=== PATIENT | female | born 1970 | race Caucasian/White ===

== ENCOUNTER 2021-11-12 19:25 | Emergency (ER) | payer BC, SELFPAY ==
[2021-11-12 19:26] VITALS: BP 126/98; PULSE 77; RESP 16; TEMP 36.8; O2SAT 99; BMI 27.3
[2021-11-12 20:39] VITALS: BP 96/76; PULSE 89; O2SAT 97
--- NOTE | 2021-11-12 20:40 | XR_ITS ---
PROCEDURE INFORMATION: Exam: XR Right Knee Exam date and time: 11/12/2021 9:24 PM Age: 50 years old Clinical indication: Pain; Knee; Right; Additional info: Pain, nwb, no known injury TECHNIQUE: Imaging protocol: Radiologic exam of the Right knee. Views: 3 views. COMPARISON: No relevant prior studies available. FINDINGS: Bones/joints: No acute fracture or dislocation. The knee compartments are preserved. Normal bone mineralization. Soft tissues: No effusion or soft tissue swelling. IMPRESSION: No acute findings.
--- NOTE | 2021-11-12 21:12 | PC.NURSE ---
Updated pt that she was waiting on a knee XRAY. Pt was agreeable. No other needs at this time.
--- NOTE | 2021-11-12 21:32 | PC.NURSE ---
Pt gone to RAD for Xray
--- NOTE | 2021-11-12 22:20 | HMH.EDGENADL ---
ED Disposition Clinical Impression: Right knee pain Disposition: Home, Self-Care Condition on Discharge: Good Instructions: DI for Knee Pain Additional Instructions: You were evaluated in the emergency department today for right knee pain. 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 You may also take Tylenol. You may bear weight as tolerated. Follow-up outpatient with orthopedics. We are providing you with a referral. Follow-up with your primary care provider over the next 48 hours. Return to the emergency department for any new or worsening symptoms. Prescriptions: Naproxen [Naproxen 500mg tab] 500 mg PO BID PRN 10 Days #20 tab PRN Reason: Mild To Moderate Pain Transmission Status: Received by [id number] Referrals: Devan Oneill JR, MD [Physician] - Holly Sewell [Primary Care Provider] - - Critical Care Critical Care Time: No Attestation: On 11/12/21, the high probability of a clinically significant, sudden or life threatening deterioration of the following system(s) required my full and direct attention, intervention and personal management. The time I documented below is in addition to time spent performing reported procedures but includes the following listed in this critical care notation. Medical Decision Making - Peter Inquiry Pt receiving controlled substance: No Vital Signs: 11/12/21 19:26 11/12/21 20:39 11/12/21 22:28 Temperature 98.3 F 98.3 F Temperature Source Oral Oral Pulse Rate 89 70 Pulse Rate [Right] 77 Respiratory Rate 16 16 Blood Pressure 96/76 L 127/78 Blood Pressure [Right Arm] 126/98 H Blood Pressure Mean [Right Arm] 107 Blood Pressure Source Automatic Cuff Blood Pressure Source [Right Arm] Automatic Cuff Blood Pressure Position Sitting Blood Pressure Position [Right Arm] Sitting 02 Sat by Pulse Oximetry 99 97 Oxygen Delivery Method Room Air Room Air Room Air Orders (Tests/Meds): ED MEDICATIONS Discontinued Medications Generic Name Dose Route Start Last Admin Trade Name Freq PRN Reason Stop Dose Admin Naproxen 500 mg 11/12/21 20:40 Naproxen 500mg Tablet PO 12/12/21 20:39 BIDP PRN Moderate to Severe Pain Medical Decision Narrative: In summary, this patient is a 50-year-old female presenting to the emergency department for evaluation of right knee pain after injuring it a week ago. Differential diagnoses include fracture, dislocation, ligamentous injury, cartilaginous injury, septic joint. No focal findings on exam suggestive of any septic joint or other acute infection. Normal passive range of motion. Patient is neurovascularly intact. X-rays of the right knee were obtained that did not demonstrate any acute abnormalities. Given this, I feel the patient is appropriate for discharge. She was given oral naproxen for symptomatic relief and discharged home with a referral to orthopedics and strict return precautions. General Adult HPI - General Chief complaint: PAIN Stated complaint: AO 0723 injured R Knee Time Seen by Provider: 11/12/21 20:00 Mode of Arrival: Ambulatory Source of Information: Patient Limitations: No Limitations Description of Symptoms (Recalled from ER Triage Doc. by RN): Pt advises she hurt her right knee last and it has been bothering her ever since but has gotten progressively worse over the past couple of days. Pt denies any known injury. Upon exam there is no swelling/redness/heat noted to the leg. - History of Present Illness HPI narrative: This patient is a 50-year-old female who denies significant past medical history presented to the emergency department for evaluation of right knee pain. She states that she did something to it nearly a week ago and thought that the pain would get better, however she states that it is only gotten worse, especially after she stands all day at work. She is unable to describe the initial injury, but she
[2021-11-12 22:28] VITALS: BP 127/78; PULSE 70; RESP 16; TEMP 36.8; O2SAT 98
== END 2021-11-12 22:37 | disposition home or self-care (01) ==
PROVIDERS: Emergency Provider Emergency Medicine; PCP Nurse Practitioner Family
DX: M25.561 Pain in right knee (principal); Z79.1 Long term (current) use of non-steroidal anti-inflammatories (NSAID)
CPT/HCPCS: 73562; 99283

== ENCOUNTER 2021-12-19 06:26 | Emergency (ER) | payer BC, SELFPAY ==
[2021-12-19 06:27] VITALS: BP 139/116; PULSE 74; RESP 16; TEMP 36.7; O2SAT 97
--- NOTE | 2021-12-19 06:40 | CT_ITS ---
PROCEDURE INFORMATION: Exam: CT Abdomen And Pelvis Without Contrast Exam date and time: 12/19/2021 6:43 AM Age: 50 years old Clinical indication: Abdominal pain; Other: Bilateral flank; Additional info: Abd pain TECHNIQUE: Imaging protocol: Computed tomography of the abdomen and pelvis without contrast. Radiation optimization: All CT scans at this facility use at least one of these dose optimization techniques: automated exposure control; mA and/or kV adjustment per patient size (includes targeted exams where dose is matched to clinical indication); or iterative reconstruction. COMPARISON: No relevant prior studies available. FINDINGS: Detailed evaluation of the abdominal and pelvic viscera is somewhat limited in the absence of intravenous contrast. Inferior thorax: Interstitial prominence. Small hiatal hernia. Liver: Fatty infiltration of the liver. Gallbladder and bile ducts: Unremarkable gallbladder. Pancreas: No pancreatic mass or ductal dilatation. Spleen: Splenic granuloma. Adrenal glands: Unremarkable adrenals. Kidneys and ureters: Mild left hydronephrosis in association with a 3 mm left UVJ calculus at the level of the pelvic inlet. 1 mm nonobstructing left renal calculus. Stomach and bowel: Diffuse wall thickening in the nondistended colon, consistent with colitis in the appropriate clinical setting. Appendix: No acute appendicitis. Intraperitoneal space: No significant free fluid. Vasculature: Pelvic vascular calcifications. Normal caliber of the abdominal aorta. Lymph nodes: No pathologically enlarged lymph nodes. Urinary bladder: Nondistended bladder. Reproductive: Tubal ligation. 1.3 cm right ovarian cyst. Bones/joints: Mild degenerative change. Soft tissues: Small umbilical hernia. Calcification at the gluteal muscle attachment sites. IMPRESSION: 1. Mild left hydronephrosis in association with a 3 mm left UVJ calculus at the level of the pelvic inlet. 2. 1 mm nonobstructing left renal calculus. 3. Diffuse wall thickening in the nondistended colon, consistent with colitis in the appropriate clinical setting. 4. Additional findings as described above.
[2021-12-19 06:47] LABS: Basophils # 0.1 K/mm3 (0-0.2); Basophils % 0.5 % (0.1-2.0); Eosinophils # 0.2 K/mm3 (0.0-0.4); Eosinophils % 1.2 % (0.1-12.0); Hematocrit 45.7 % (37.0-47.0); Hemoglobin 14.3 g/dL (12.2-16.2); Lymphocytes # 1.7 K/mm3 (0.7-4.5); Lymphocytes % 13.1 % (10-50); Mean Corpuscular HGB Conc 31.2 g/dL (31.8-35.4); Mean Corpuscular Hemoglobin 29.6 pg (27.0-31.2); Mean Corpuscular Volume 94.8 fl (81-99); Mean Platelet Volume 8.6 fl (7.4-10.4); Monocytes # 0.2 K/mm3 (0.1-1.0); Monocytes % 1.9 % (1.7-9.3); Neutrophils # 10.8 K/mm3 (1.8-7.8); Neutrophils % 83.3 % (37.0-80.0); Platelet Count 411 K/mm3 (142-424); Red Blood Count 4.82 M/mm3 (4.20-5.40); Red Cell Distribution Width 13.6 % (11.5-17.5)
[2021-12-19 06:53] LABS: Alanine Aminotransferase 29 U/L (12-78); Albumin Level 4.3 g/dl (3.5-5.0); Albumin/Globulin Ratio 1.3 (1.1-1.8); Alkaline Phosphatase 125 U/L (38-126); Amylase 101 U/L (30-110); Anion Gap 11.7 mEq/L (5-15); Aspartate Amino Transferase 28 U/L (14-36); Bilirubin,Total 0.5 mg/dl (0.2-1.3); Blood Urea Nitrogen 12 mg/dl (7-17); Calcium 10.2 mg/dl (8.4-10.2); Carbon Dioxide 24 mmol/L (22.0-30.0); Chloride 106 mmol/L (98-107); Creatinine Clearance Estimated 111 mL/min (50-200); Estimated Glomerular Filt Rate 89 ml/min (>60); GFR (African American) 108 ML/MIN (>60); Globulin 3.3 g/dL (1.3-3.2); Glucose 158 mg/dl (74-100); Lipase 115 U/L (23-300); Potassium 3.7 mmoL/L (3.5-5.1); Sodium 138 mmol/L (136-145); Total Protein,Serum 7.6 g/dl (6.3-8.2)
[2021-12-19 06:58] LABS: C-Reactive Protein 2.9 mg/L (0-4)
[2021-12-19 07:10] LABS: Erythrocyte Sedimentation Rate 12 mm/hr (0-20)
[2021-12-19 07:12] LABS: Procalcitonin 0.033 ng/mL (0.0-2.0)
--- NOTE | 2021-12-19 07:29 | PC.NURSE ---
pt given blanket
--- NOTE | 2021-12-19 07:40 | PC.NURSE ---
ROUNDED ON PT AT THIS TIME. ADDITIONAL WARM BLANKET PROVIDED. NO FURTHER NEEDS
--- NOTE | 2021-12-19 08:00 | PC.NURSE ---
ROUNDED ON PT AT THIS TIME, REMAINS UNABLE TO VOID AT THIS TIME. NO NEEDS AT THIS TIME
--- NOTE | 2021-12-19 08:02 | HMH.EDGENADL ---
Discharge Plan Disposition Patient Disposition: Home, Self-Care Condition: Good Prescriptions Prescriptions: New ketorolac 10 mg tablet 10 mg PO Q6H PRN (Reason: moderate pain ) Qty: 10 0RF oxycodone-acetaminophen [Percocet] 5-325 mg tablet 1 tab PO Q6H PRN (Reason: pain) Qty: 10 0RF ondansetron HCl 4 mg tablet 4 mg PO Q8H PRN (Reason: nausea and vomiting) Qty: 10 0RF tamsulosin [Flomax] 0.4 mg capsule 0.4 mg PO HS Qty: 10 0RF Referrals Follow up/Referrals: Holly Sewell [Primary Care Provider] - See instructions Brandon Davis MD [Staff Physician] - See instructions Activity Restrictions/Add. Instructions Additional Instructions/Restrictions: Flomax as prescribed. Percocet and Toradol as needed for pain. Zofran as needed for nausea. Additional instructions for KIDNEY STONE (URETERAL CALCULUS): See Dr. Davis as soon as possible for further evaluation. Drink plenty of fluids. Strain your urine and save any stones you catch. Return immediately if you develop a fever or have uncontrollable vomiting or uncontrollable pain. Additional instructions for CONTROLLED SUBSTANCES: You have been prescribed a medication that is a controlled substance. Controlled substances include pain medications known as opiates and sedative nerve medications known as benzodiazepines. Tramadol, fioricet, and gabapentin are also controlled substances. Some common opiates include: Codeine (such as Tylenol #3) Hydrocodone (Vicodin, Lortab, Lorcet, Mozier) Oxycodone (Percocet, Percodan, Oxycodone, Oxy IR) Some common benzodiazepines include: Diazepam (Valium) Lorazepam (Ativan) Alprazolam (Xanax) Clonazepam (Klonopin) Oxazepam (Serax) All of these controlled substances are highly addictive and frequently abused. Misuse can and frequently does lead to addiction as well as overdose and . Medication should be stored in a locked cabinet or other secure storage unit. Do not store the medication in a motor vehicle. Short term supplies, 3 days or less, are prescribed because of the highly addictive nature of the medication. Any of the controlled substance medication NOT taken should be disposed of properly and NOT SAVED. The recommended method of disposing of unused medications is: Place the medicines in a sealable plastic bag. If the medicine is a solid, crush it or add water to dissolve it. Add something undesirable (cat litter, coffee grounds, etc.) Dispose of sealed bag in household trash Do not flush or pour unused medicines down a sink or drain. Controlled substances should not be shared, given away or sold. Because of the addictive nature and frequent abuse, these medications are sometimes stolen. These medications should be kept in a safe place where they cannot be stolen. Do not keep them in your car or purse. Lost or stolen prescriptions for controlled substances WILL NOT BE REFILLED in this emergency department, regardless of whether a police report was filed. Clinical Impressions Clinical Impression: Calculus of distal left ureter Instructions Patient Instructions: DI for Kidney Stones Discharge ED Provider: Amilcar Herring General Adult HPI General Chief complaint: Abdominal Pain Stated complaint: left abd pain radiating to back; vomiting Time Seen by Provider: 12/19/21 08:05 Mode of Arrival: Ambulatory Source of Information: Patient and Spouse Limitations: No Limitations Description of Symptoms (Recalled from ER Triage Doc. by RN): PT STATES TO HAVE WOKEN UP AT 3 AM WITHT PAIN IN THE LLQ RADIATING TO HER BACK PT STATES SHE HAS ALSO THROWN UP PHLEM A FEW TIMES SINCE SHHE WOKE UP History of Present Illness HPI narrative: Awakened at 3 AM with left flank pain into her left lower quadrant. Associated with vomiting. Prior to this was in her usual state of health. No history of kidney stones. Pain is currently 7/10 after Toradol in the emergency department. Related Data Prev
[2021-12-19 08:04] VITALS: BP 136/71; PULSE 72; RESP 18; O2SAT 97
--- NOTE | 2021-12-19 08:05 | PC.NURSE ---
ED MD AT BEDSIDE
--- NOTE | 2021-12-19 08:10 | PC.NURSE ---
Pt states that she is still unable to provide a urine sample at this time. IVF continue to run.
[2021-12-19 08:18] LABS: Appearance,Urine SL CLOUDY (Clear); Bilirubin,Urine Negative (Negative); Blood, Urine 1+ (Negative); Color,Urine YELLOW (Yellow); Glucose,Urine (UA) Negative (Negative); Ketones,Urine 1+ (Negative); Leukocyte Esterase,Urine TRACE (Negative); Microscopic, Urine URINE MICROSCOPIC (MICROSCOPIC); Nitrate,Urine Negative (Negative); PH,Urine 6.5 (5.0-8.5); Protein,Urine Negative (Negative); Specific Gravity, Urine 1.025 (1.005-1.030); Urobilinogen,Urine 0.2 EU/dl (0.2)
--- NOTE | 2021-12-19 08:28 | PC.NURSE ---
ROUNDED ON PT, PAIN IMPROVED AFTER IV MORPHINE. NO NEEDS AT THIS TIME
[2021-12-19 08:30] VITALS: BP 116/65; PULSE 61; RESP 20; O2SAT 98
[2021-12-19 08:33] LABS: Bacteria,Urine 1+ /lpf; WBC,Urine Occasional #/hpf (0-3)
--- NOTE | 2021-12-19 08:48 | PC.NURSE ---
7101 ED MD AT BEDSIDE TO REEVALUATE PT
[2021-12-19 09:00] VITALS: BP 102/74; PULSE 86; O2SAT 98
[2021-12-19 09:10] VITALS: BP 102/74; PULSE 86; RESP 16; TEMP 36.8; O2SAT 98
== END 2021-12-19 09:10 | disposition home or self-care (01) ==
PROVIDERS: Emergency Medicine; Emergency Provider Emergency Medicine; PCP Nurse Practitioner Family
DX: N13.2 Hydronephrosis with renal and ureteral calculous obstruction (principal)
CPT/HCPCS: 74176; 80053; 81001; 82150; 83690; 84145; 85025; 85651; 86140; 96361; 96374; 96375; 99284; J2405

== ENCOUNTER 2022-05-18 10:32 | Emergency (ER) | payer OTHER, SELFPAY ==
[2022-05-18 10:35] VITALS: BP 148/90; PULSE 99; RESP 20; TEMP 36.6; O2SAT 95; BMI 30.2
--- NOTE | 2022-05-18 10:48 | EXP.UTC ---
Discharge Plan Disposition Patient Disposition: Home, Self-Care Condition: Good Prescriptions Prescriptions: New amoxicillin [amoxicillin] 500 mg tablet 500 mg PO TID 10 Days Qty: 30 0RF benzonatate [benzonatate] 100 mg capsule 100 mg PO TIDP PRN (Reason: Cough) Qty: 30 0RF methylprednisolone 4 mg Tablets,Dose Pack 4 mg PO DIRECTED Qty: 21 0RF Referrals Follow up/Referrals: Holly Sewell [Primary Care Provider] - See instructions Activity Restrictions/Add. Instructions Additional Instructions/Restrictions: Drink plenty of fluids. Take tylenol or ibuprofen for pain or fever. Take the medications as directed. Follow up with your regular doctor. GO TO THE ER FOR ANY WORSENING SYMPTOMS Clinical Impressions Clinical Impression: Bronchitis, Sinusitis Stand Alone Forms Stand Alone Forms: Work/School Release Instructions Patient Instructions: Acute Bronchitis, DI for Sinusitis, DI for Acute Bronchitis Discharge ED Provider: Enzo Enciso [facility] [place] HPI General Stated complaint: Sneezing cough drainage pressure in ears Time Seen by Provider: 05/18/22 10:47 History of Present Illness Provider Complaint: She states that for the past 2 days she has had sore throat, sinus drainage, chest congestion, and a productive cough. Related Data Previous Rx's Medication Instructions Recorded amoxicillin 500 mg tablet 500 mg PO TID 10 days #30 tabs 05/18/22 benzonatate 100 mg capsule 100 mg PO TIDP PRN Cough #30 caps 05/18/22 methylprednisolone 4 mg tablets in 4 mg PO DIRECTED #21 tabs 05/18/22 a dose pack Allergies Allergy/AdvReac Type Severity Reaction Status Date / Time No Known Allergies Allergy Verified 05/18/22 10:53 [facility] Disclaimer: The information contained in this section may have been updated after the patient was seen, as this information can be updated by other users. Social History Smoking Status: Never smoker alcohol intake: never current occupational status: employed Travel in the last 8 weeks: None ROS Obtained: Yes All systems reviewed & no additional complaints except as documented Constitutional Constitutional: Reports chills and Reports fever(s) Eyes Eyes: Denies eye discharge ENT Ears, Nose, Mouth, and Throat: Reports as per HPI Cardiovascular Cardiovascular: Denies chest pain Respiratory Respiratory: Denies chest congestion and Reports cough Gastrointestinal Gastrointestingal: Reports nausea; Denies abdominal pain, constipation, cramping, diarrhea or vomiting Musculoskeletal Musculoskeletal: Denies arthralgias Integumentary/Breasts Skin/Breast: Denies rash Neurologic Neurologic: Denies paresthesias Physical Exam General General appearance: alert and in no apparent distress Head Head exam: atraumatic, normocephalic and normal inspection Eye Eye exam: Present normal appearance, PERRL and EOMI ENT ENT exam: Present normal exam, normal oropharynx, mucous membranes moist, TM's normal bilaterally and normal external ear exam Neck Neck exam: Present normal inspection, full ROM and trachea midline; Absent meningismus or lymphadenopathy Chest Chest inspection: Present normal inspection and symmetric chest wall rise; Absent tenderness Respiratory Respiratory exam: Present normal lung sounds bilaterally; Absent respiratory distress Cardiovascular Cardiovascular exam: Present regular rate and normal rhythm; Absent JVD Abdominal Exam Abdominal exam: Present soft and normal bowel sounds; Absent distention, tenderness or guarding Extremities Exam Extremities exam: Present normal inspection, full ROM and normal capillary refill; Absent calf tenderness Back Exam Back exam: Present normal inspection; Absent tenderness Neurological Exam Neurological exam: Present alert and oriented X3 Psychiatric Psychiatric exam: Present normal affect and normal mood Skin Skin exam: Present warm, dry, intact
[2022-05-18 11:53] VITALS: BP 148/90; PULSE 99; RESP 20; TEMP 36.6; O2SAT 95
== END 2022-05-18 11:46 | disposition home or self-care (01) ==
PROVIDERS: Emergency Provider Nurse Practitioner Family; PCP Nurse Practitioner Family
DX: J40 Bronchitis, not specified as acute or chronic (principal); J32.9 Chronic sinusitis, unspecified
CPT/HCPCS: 99212; 99213; G0463

== ENCOUNTER 2022-06-11 13:01 | Emergency (ER) | payer OTHER, SELFPAY ==
[2022-06-11 14:00] VITALS: BP 129/80; PULSE 103; RESP 12; TEMP 37.1; O2SAT 97; BMI 29.2
--- NOTE | 2022-06-11 14:28 | EXP.UTC ---
Discharge Plan Disposition Patient Disposition: Home, Self-Care Condition: Good Prescriptions Prescriptions: New [id number]-BJ [Bromfed DM] 2-30-10 mg/5 mL syrup 10 ml PO Q6H PRN (Reason: cold symptoms) Qty: 200 0RF No Action amoxicillin [amoxicillin] 500 mg tablet 500 mg PO TID 10 Days Qty: 30 0RF Referrals Follow up/Referrals: Holly Sewell [Primary Care Provider] - See instructions Activity Restrictions/Add. Instructions Additional Instructions/Restrictions: wear a mask for the next week while in public. Clinical Impressions Clinical Impression: Upper respiratory tract infection Instructions Patient Instructions: DI for Viral Upper Respiratory Infection -- Adult Discharge ED Provider: Michelle Santacruz [facility] General Stated complaint: cough,headache Mode of Arrival: Ambulatory Source of Information: Patient Limitations: No Limitations Time Seen by Provider: 06/11/22 14:28 Description of Symptoms (Recalled from Triage Doc. by RN): productive cough, stuffiness, lots of drainage. Had amox 2 wks ago. HEENT Symptoms (Recalled from RN notes): Yes Resp Symptoms (Recalled from RN notes): No Skin Symptoms (Recalled from RN notes): No MS Symptoms (Recalled from RN notes): No Functional Status (Recalled from RN notes): n/a Related Data Previous Rx's Medication Instructions Recorded amoxicillin 500 mg tablet 500 mg PO TID 10 days #30 tabs 05/18/22 [id number]-hgyixsccelbedox-LX 10 ml PO Q6H PRN cold symptoms 06/11/22 2 mg-30 mg-10 mg/5 mL oral syrup #200 mL (Bromfed DM) Allergies Allergy/AdvReac Type Severity Reaction Status Date / Time No Known Allergies Allergy Verified 06/11/22 14:05 Worker's Comp Is this a Worker's Comp case?: No [facility] Disclaimer: The information contained in this section may have been updated after the patient was seen, as this information can be updated by other users. Social History (Updated 05/19/22 @ 21:16 by Enzo Enciso APRN) Smoking Status: Never smoker alcohol intake: never current occupational status: employed Travel in the last 8 weeks: None ROS Obtained: Yes All systems reviewed & no additional complaints except as documented Constitutional Constitutional: Reports chills, Reports fever(s), Reports headache(s) and Reports malaise Eyes Eyes: Reports system reviewed and no additional complaints, except as documented ENT Ears, Nose, Mouth, and Throat: Reports headache(s) and Reports sinus pressure Cardiovascular Cardiovascular: Reports system reviewed and no additional complaints, except as documented Respiratory Respiratory: Reports as per HPI, Reports cough and Reports non-productive cough Gastrointestinal Gastrointestingal: Reports system reviewed and no additional complaints, except as documented Genitourinary Female Genitourinary: Reports system reviewed and no additional complaints, except as documented Musculoskeletal Musculoskeletal: Reports system reviewed and no additional complaints, except as documented Integumentary/Breasts Skin/Breast: Reports system reviewed and no additional complaints, except as documented Neurologic Neurologic: Reports system reviewed and no additional complaints, except as documented and Reports headache(s) Endocrine Endocrine: Reports system reviewed and no additional complaints, except as documented Hematologic/Lymphatic Henatologic/Lymphatic: Reports system reviewed and no additional complaints, except as documented Allergic/Immunologic Allergic/Immunologic: Reports system reviewed and no additional complaints, except as documented Physical Exam General General appearance: alert and in no apparent distress Head Head exam: atraumatic and normocephalic Eye Eye exam: Present normal appearance Expanded ENT Exam External ear exam: Present normal external inspection Nasal speculum exam: Bilateral: other (clear drainage) Mouth exam: Present normal external inspection Teeth exam
[2022-06-11 14:56] VITALS: BP 129/80; PULSE 103; RESP 12; TEMP 37.1; O2SAT 97
== END 2022-06-11 14:56 | disposition home or self-care (01) ==
PROVIDERS: Emergency Provider Nurse Practitioner Family; PCP Nurse Practitioner Family
DX: J06.9 Acute upper respiratory infection, unspecified (principal)
CPT/HCPCS: 99212; 99213; G0463

== ENCOUNTER 2023-02-26 15:49 | Emergency (ER) | payer OTHER, SELFPAY ==
[2023-02-26 16:20] VITALS: BP 119/86; PULSE 101; RESP 19; TEMP 37.1; O2SAT 99; BMI 31.7
[2023-02-26 16:30] LABS: UTC Influenza A Antigen Negative (Negative); UTC Influenza B Antigen Negative (Negative); UTC Strep Screen (Rapid) Negative (Negative)
--- NOTE | 2023-02-26 16:33 | EXP.UTC ---
Discharge Plan Disposition Patient Disposition: Home, Self-Care Condition: Good Prescriptions Prescriptions: New methylprednisolone [Medrol (Delta)] 4 mg tablets,dose pack See Rx Instructions .Route .COMPLEX 6 Days Qty: 21 0RF Rx Instructions: taper pack; guaifenesin [Mucinex] 600 mg tablet extended release 12hr 600 mg PO BID PRN (Reason: cough) Qty: 20 0RF azithromycin [Zithromax Z-Delta] 250 mg tablet See Rx Instructions .ROUTE .COMPLEX 5 Days Qty: 6 0RF Rx Instructions: For 250 mg dose pack: take 500 mg today (day 1), then 250 mg for 4 days (days 2-5) Referrals Follow up/Referrals: Provider,Referral, MD [Primary Care Provider] - See instructions Activity Restrictions/Add. Instructions Additional Instructions/Restrictions: *Monitor Temp, Over the counter Motrin or Tylenol as directed/as needed Tylenol every 4 hours and Motrin every 6 hours (as long as your family doctor has told you that you can take it) for fever or pain. and straight to ER if unable to lower temp less than 101.0 after medication given *Warm salt water gargles may help to soothe the throat *Throat Lozenges? *Warm fluids like tea with honey may help to soothe the throat? *Sleep elevated *Humidifier/Vaporizer *Bromfed may cause drowsiness. Know how it effects you (your child) before driving, caring for small child, or sending your child to school. Not other antihistamines/allergy medications while taking bromfed Your throat swab was sent for culture. Those results are typically sent to your primary care. Be sure to follow up in 2-3 days with your family doctor/primary care physician if no improvement so they can review those result and treat if necessary. If you don?t have a primary care doctor, I recommend you get one but in the mean time, you will have to return to a walk in clinic Follow up IMMEDIATELY for new or worsening symptoms or no Noticeable improvement over the next 48-72 hours. 911 for difficulty breathing or swallowing You were tested for today for ?Upper Respiratory Panel with COVID19 your test result should be back in the next 24 hours You may check your results on the [facility] My Health Portal if your COVID test is positive you must Quarantine for 5 days Clinical Impressions Clinical Impression: Otitis media Qualifiers: Otitis media type: unspecified Laterality: left Qualified Code(s): H66.92 - Otitis media, unspecified, left ear Instructions Patient Instructions: Sore Throat, Cough, Middle Ear Infection Discharge ED Provider: Sheila Lozano [facility] HPI General Stated complaint: MAN.sore throat,no energy Time Seen by Provider: 02/26/23 16:20 History of Present Illness Provider Complaint: Patient states that she started feeling bad last week with no energy feeling achy all over, ear ache, headache and sore throat nasal congestion States that she has been coughing and sneezing and then she was around her grandson that had strep throat States that she has continued to feel bad throughout the weekend and today she wasnt feeling any better so she came in to get checked Related Data Previous Rx's Medication Instructions Recorded azithromycin 250 mg tablet See Rx Instructions PO .COMPLEX 5 02/26/23 (Zithromax Z-Delta) days #6 tabs guaifenesin 600 mg tablet, 600 mg PO BID PRN cough #20 tabs 02/26/23 extended release 12 hr (Mucinex) methylprednisolone 4 mg tablets in See Rx Instructions .Route 02/26/23 a dose pack (Medrol (Delta)) .COMPLEX 6 days #21 tabs Allergies Allergy/AdvReac Type Severity Reaction Status Date / Time No Known Allergies Allergy Verified 06/11/22 14:05 [facility] Disclaimer: The information contained in this section may have been updated after the patient was seen, as this information can be updated by other users. Social History (Updated 05/19/22 @ 21:16 by Enzo Enciso APRN) Smoking Status: Never smoker alcohol intake: never current occu
[2023-02-26 16:44] VITALS: BP 119/86; PULSE 101; RESP 19; TEMP 37.1; O2SAT 99
== END 2023-02-26 16:50 | disposition home or self-care (01) ==
PROVIDERS: Emergency Provider Nurse Practitioner
DX: H66.92 Otitis media, unspecified, left ear (principal); R51.9 Headache, unspecified; R07.0 Pain in throat; R09.81 Nasal congestion; R05.9 Cough, unspecified; Z20.828 Contact with and (suspected) exposure to other viral communicable diseases
CPT/HCPCS: 87804; 87880; 99212; 99214; G0463

== ENCOUNTER 2024-01-17 18:15 | Emergency (ER) | payer BC, SELFPAY ==
[2024-01-17 18:28] VITALS: BP 147/84; PULSE 81; RESP 18; TEMP 36.6; O2SAT 97; BMI 32.5
[2024-01-17 18:40] LABS: UTC Strep Screen (Rapid) Negative (Negative)
--- NOTE | 2024-01-17 18:41 | ED_ITS ---
Discharge Plan Disposition Patient Disposition: Home, Self-Care Condition: Good Prescriptions Prescriptions: New amoxicillin-pot clavulanate 875-125 mg Tablet 1 tab PO Q12H Qty: 20 0RF benzonatate 100 mg capsule 100 mg PO TID PRN (Reason: cough) Qty: 30 0RF methylprednisolone [Medrol (Delta)] 4 mg tablets,dose pack See Rx Instructions .Route .COMPLEX 6 Days Qty: 21 0RF Rx Instructions: taper pack; guaifenesin [Mucinex] 600 mg tablet extended release 12hr 1,200 mg PO BID PRN (Reason: cough) Qty: 30 0RF Referrals Follow up/Referrals: Holly Sewell [Primary Care Provider] - See instructions Activity Restrictions/Add. Instructions Additional Instructions/Restrictions: * Start antibiotic today. Be sure to complete entire prescription even if feeling better * Monitor temp. Tylenol every 4 hours as needed and / or ibuprofen every 6 hours as needed ( As long as your primary care physician has told you that it ok to take both. For fever/aches/pains ER if no less than 101 despite Tylenol or Motrin * Humidifier/vaporizer or hot steamy shower * Mucinex during the day for your cough and cough suppressant only at night. Be sure to drink lots of water. Insurance may not cover a presc riptions for mucinex. Might be cheaper to get 400mg tablets and take 2 tablet in the morning, mid-day and evening with lots of water. *Tessalon Perles will not cause drowsiness but use at bedtime to help stop cough so that you may get some rest. *Start steroid today. Helps with inflammation therefore, cough and wheezing. Follow directions on the package. Reviewed side effects. Patient reports taking them before. Follow up IMMEDIATELY for new or worsening of symptoms OR no noticeable improvement over the next 48-72 hours. 911 immediately for any life threatening symptoms such as chest pain or difficulty breathing Clinical Impressions Clinical Impression: Bronchitis, Sinusitis Instructions Patient Instructions: DI for Sinusitis, Acute Bronchitis Print Language Print Language: Belarusian Discharge ED Provider: Sheila Lozano [facility] HPI General Stated complaint: cough,sore throat Mode of Arrival: Ambulatory Source of Information: Patient Time Seen by Provider: 01/17/24 18:41 Description of Symptoms (Recalled from Triage Doc. by RN): SORE THROAT, EXCESSIVE COUGHING, EARS HURTING EDEL HAD STREP THIS WEEKEND HEENT Symptoms (Recalled from RN notes): Yes Resp Symptoms (Recalled from RN notes): Yes Skin Symptoms (Recalled from RN notes): No MS Symptoms (Recalled from RN notes): No Functional Status (Recalled from RN notes): WNL History of Present Illness Provider Complaint: Patient states that she was around her grandchildren this weekend that had strep throat States that she has been having sore throat, sinus congestion and pressure, drainage in the back of her throat, sore throat and cough States feels like it does when she gets bronchitis Related Data Previous Rx's ?Medication ?Instructions ?Recorded amoxicillin 875 mg-potassium 1 tab PO Q12H #20 tabs 01/17/24 clavulanate 125 mg tablet benzonatate 100 mg capsule 100 mg PO TID PRN cough #30 caps 01/17/24 guaifenesin 600 mg tablet, 1,200 mg (2 x 600 mg) PO BID PRN 01/17/24 extended release 12 hr (Mucinex) cough #30 tabs methylprednisolone 4 mg tablets in See Rx Instructions .Route 01/17/24 a dose pack (Medrol (Delta)) .COMPLEX 6 days #21 tabs Allergies Allergy/AdvReac Type Severity Reaction Status Date / Time No Known Allergies Allergy Verified 06/11/22 14:05 Worker's Comp Is this a Worker's Comp case?: No PFSH [facility] Disclaimer: The information contained in this section may have been updated after the patient was seen, as this information can be updated by other users. Social History (Updated 05/19/22 @ 21:16 by Enzo Enciso APRN) Smoking Status: Never smoker alcohol intake: never current occupational status: employed Travel in the last 8 weeks: None ROS Obtained: Yes All systems reviewed & no additional complaints except as documented and Yes Systems reviewed as appropriate & no additional complaints except as documented Constitutional Constitutional: Reports system reviewed and no additional complaints, except as documented, Reports as per HPI and Reports headache(s) ENT Ears, Nose, Mouth, and Throat: Reports system reviewed and no additional complaints, except as documented, Reports as per HPI, Reports headache(s), Reports sinus pain, Reports sinus pressure and Reports sore throat Cardiovascular Cardiovascular: Reports system reviewed and no additional complaints, except as documented and Reports as per HPI Respiratory Respiratory: Reports system reviewed and no additional complaints, except as documented, Reports as per HPI and Reports cough Gastrointestinal Gastrointestingal: Reports system reviewed and no additional complaints, except as documented and as per HPI Neurologic Neurologic: Reports headache(s) Physical Exam General General appearance: alert and in no apparent distress ENT ENT exam: Present mucous membranes moist Expanded ENT Exam Nose exam: Present sinus tenderness Throat exam: Present other (PND noted with pharyngeal erythema ) Respiratory Respiratory exam: Present normal lung sounds bilaterally; Absent respiratory distress or wheezes Cardiovascular Cardiovascular exam: Present regular rate, normal rhythm and normal heart sounds Abdominal Exam Abdominal exam: Present soft and normal bowel sounds; Absent distention or tenderness Neurological Exam Neurological exam: Present alert, oriented X3 and normal gait Medical Decision Making Medical Records Screening: Per USPSTF and CDC recommendations, given the prevalence of disease in our region, it is our hospital?s policy to screen for HIV and viral Hepatitis for all patients aged 18 and over and those with ongoing risk factors. Peter Inquiry Pt receiving controlled substance: No Peter was queried for this patient: No Vital Signs: 01/17/24 18:28 Temperature 97.9 F Temperature Source Oral Pulse Rate [Left Radial] 81 Respiratory Rate 18 Blood Pressure [Left Arm] 147/84 H Blood Pressure Mean [Left Arm] 105 02 Sat by Pulse Oximetry 97 Lab Data Lab results reviewed: Yes I reviewed the patient's lab results. Lab Results 01/17/24 18:31: Strep Scn Rapid Clinic Negative Orders (Tests/Meds): ORDERS Category Date Time Status Strep Screen Confirmation Stat Micro 01/17/24 18:31 Received
[2024-01-17 18:47] VITALS: BP 147/84; PULSE 81; RESP 18; TEMP 36.6
== END 2024-01-17 18:51 | disposition home or self-care (01) ==
PROVIDERS: Emergency Provider Nurse Practitioner; PCP Nurse Practitioner Family
DX: J32.9 Chronic sinusitis, unspecified (principal); J40 Bronchitis, not specified as acute or chronic; R05.9 Cough, unspecified; J02.9 Acute pharyngitis, unspecified; H92.03 Otalgia, bilateral
CPT/HCPCS: 87880; 99212; G0381

== ENCOUNTER 2024-05-21 12:38 | Emergency (ER) | payer SELFPAY ==
--- NOTE | 2024-05-21 14:08 | ED_ITS ---
Discharge Plan Disposition Patient Disposition: Home, Self-Care Condition: Good Prescriptions Prescriptions: New Stahist AD 25-60 mg tablet 1 tab PO Q6HP PRN (Reason: congestion) Qty: 20 1RF promethazine-DM 6.25-15 mg/5 mL Syrup 5 ml PO Q6H PRN (Reason: Cough) Qty: 240 0RF azithromycin [Zithromax] 250 mg tablet 250 mg PO UD DOSE PK Qty: 6 0RF Rx Instructions: Take two (2) tablets today, then one (1) tablet days #2 thru #5 methylprednisolone 4 mg Tablets,Dose Pack 4 mg PO DIRECTED 6 Days Qty: 21 0RF Rx Instructions: Take 1 pack as directed for 6 days oseltamivir [Tamiflu] 75 mg capsule 75 mg PO BID 5 Days Qty: 10 0RF No Action amoxicillin-pot clavulanate 875-125 mg Tablet 1 tab PO Q12H Qty: 20 0RF benzonatate 100 mg capsule 100 mg PO TID PRN (Reason: cough) Qty: 30 0RF methylprednisolone [Medrol (Delta)] 4 mg tablets,dose pack See Rx Instructions .Route .COMPLEX 6 Days Qty: 21 0RF Rx Instructions: taper pack; guaifenesin [Mucinex] 600 mg tablet extended release 12hr 1,200 mg PO BID PRN (Reason: cough) Qty: 30 0RF Referrals Follow up/Referrals: Holly Sewell [Primary Care Provider] - See instructions Activity Restrictions/Add. Instructions Additional Instructions/Restrictions: Drink plenty of fluids. Take tylenol or ibuprofen for pain or fever. Take the medications as directed. Follow up with your regular doctor. GO TO THE ER FOR ANY WORSENING SYMPTOMS Don't start the oral steroids (medrol dose pack) until tomorrow since you had the shot here The cough medication (promethazine dm) will make you drowsy, so don't drive or operate heavy machinery after taking it. The stahist contains pseudophedrine. This medication with cause your blood pressure to go up. Usually it is fine to take it for a few days, but don't take it regularly for longer than 2 to 3 days. Clinical Impressions Clinical Impression: Acute bronchitis, Influenza A Instructions Patient Instructions: DI for Acute Bronchitis, Promethazine, Azithromycin Print Language Print Language: Gambian Discharge ED Provider: Enzo Enciso [facility] HPI General Stated complaint: cough, fever Time Seen by Provider: 05/21/24 14:08 Related Data Previous Rx's ?Medication ?Instructions ?Recorded amoxicillin 875 mg-potassium 1 tab PO Q12H #20 tabs 01/17/24 clavulanate 125 mg tablet benzonatate 100 mg capsule 100 mg PO TID PRN cough #30 caps 01/17/24 guaifenesin 600 mg tablet, 1,200 mg (2 x 600 mg) PO BID PRN 01/17/24 extended release 12 hr (Mucinex) cough #30 tabs methylprednisolone 4 mg tablets in See Rx Instructions .Route 01/17/24 a dose pack (Medrol (Delta)) .COMPLEX 6 days #21 tabs azithromycin 250 mg tablet 250 mg PO UD DOSE PK #6 tabs 05/21/24 (Zithromax) chlorcyclizine-pseudoephedrine 25 1 tab PO Q6HP PRN congestion #20 05/21/24 mg-60 mg tablet (Stahist AD) tabs methylprednisolone 4 mg tablets in 4 mg PO DIRECTED 6 days #21 tabs 05/21/24 a dose pack oseltamivir 75 mg capsule (Tamiflu) 75 mg PO BID 5 days #10 caps 05/21/24 promethazine-DM 6.25 mg-15 mg/5 mL 5 ml PO Q6H PRN Cough #240 mL 05/21/24 oral syrup Allergies Allergy/AdvReac Type Severity Reaction Status Date / Time No Known Allergies Allergy Verified 06/11/22 14:05 [facility] Disclaimer: The information contained in this section may have been updated after the patient was seen, as this information can be updated by other users. Social History (Updated 05/19/22 @ 21:16 by Enzo Enciso APRN) Smoking Status: Never smoker alcohol intake: never current occupational status: employed Travel in the last 8 weeks: None Have you lived/traveled outside [place] in past 30 days?: No Contact w/someone who lives/traveled outside [place] past 30 days?: No Exposure to someone with infectious disease in past 14 days?: No Do you have a fever (greater than 100.4 F or 38 C)?: Yes Have you tested positive for COVID-19: No Exposed to someone with COVID-19 in past 14 days?: No Do you have a sore throat?: No Do you have a cough?: Yes Do you have any weakness?: No Do you have any diarrhea?: No Are you experiencing any unusual bleeding?: No Do you have any muscle aches/pain?: No Do you have any abdominal pain?: No Are you experiencing loss of taste or smell?: No ROS Obtained: Yes All systems reviewed & no additional complaints except as documented Constitutional Constitutional: Reports chills and Reports fever(s) Eyes Eyes: Denies eye discharge ENT Ears, Nose, Mouth, and Throat: Reports as per HPI Cardiovascular Cardiovascular: Denies chest pain Respiratory Respiratory: Denies chest congestion and Reports cough Gastrointestinal Gastrointestingal: Reports nausea; Denies abdominal pain, constipation, cramping, diarrhea or vomiting Musculoskeletal Musculoskeletal: Denies arthralgias Integumentary/Breasts Skin/Breast: Denies rash Neurologic Neurologic: Denies paresthesias Physical Exam General General appearance: alert and in no apparent distress Head Head exam: atraumatic, normocephalic and normal inspection Eye Eye exam: Present normal appearance, PERRL and EOMI ENT ENT exam: Present normal exam, normal oropharynx, mucous membranes moist, TM's normal bilaterally and normal external ear exam Neck Neck exam: Present normal inspection, full ROM and trachea midline; Absent meningismus or lymphadenopathy Chest Chest inspection: Present normal inspection and symmetric chest wall rise; Absent tenderness Respiratory Respiratory exam: Present normal lung sounds bilaterally; Absent respiratory distress Cardiovascular Cardiovascular exam: Present regular rate and normal rhythm; Absent JVD Abdominal Exam Abdominal exam: Present soft and normal bowel sounds; Absent distention, tenderness or guarding Extremities Exam Extremities exam: Present normal inspection, full ROM and normal capillary refill; Absent calf tenderness Back Exam Back exam: Present normal inspection; Absent tenderness Neurological Exam Neurological exam: Present alert and oriented X3 Psychiatric Psychiatric exam: Present normal affect and normal mood Skin Skin exam: Present warm, dry, intact and normal color Lymphatic Lymphatic Findings: no adenopathy Medical Decision Making Medical Records Medical records reviewed: No I reviewed the patient's medical records. Screening: Per USPSTF and CDC recommendations, given the prevalence of disease in our region, it is our hospital?s policy to screen for HIV and viral Hepatitis for all patients aged 18 and over and those with ongoing risk factors. Peter Inquiry Pt receiving controlled substance: No Lab Data Lab results reviewed: Yes I reviewed the patient's lab results.
[2024-05-21 14:12] VITALS: BP 145/79; PULSE 101; RESP 21; TEMP 37.7; O2SAT 97; BMI 31.2
[2024-05-21 14:32] VITALS: BP 145/79; PULSE 101; RESP 21; TEMP 37.7
[2024-05-21] MEDS: DEXAMETHASONE 4MG/ML 1ML VIAL 8 MG IM (14:43)
[2024-05-21 15:17] LABS: Coronavirus 19, PCR Not Detected (NotDetected); Influenza B, PCR Not Detected (NotDetected)
[2024-05-21 18:27] LABS: Influenza A, PCR Detected (NotDetected)
== END 2024-05-21 15:13 | disposition home or self-care (01) ==
PROVIDERS: Emergency Provider Nurse Practitioner Family; PCP Nurse Practitioner Family
DX: J10.1 Influenza due to other identified influenza virus with other respiratory manifestations (principal); J20.9 Acute bronchitis, unspecified
CPT/HCPCS: 87636; 99213; G0381; J1100

== ENCOUNTER 2024-07-27 18:51 | Outpatient (CLI) | payer MEDICAID, SELFPAY ==
--- NOTE | 2024-07-27 19:00 | XR_ITS ---
PROCEDURE INFORMATION: Exam: XR Chest Exam date and time: 07/27/2024 6:50 PM Age: 53 years old Clinical indication: Cough; Additional info: Cough/chest congestion TECHNIQUE: Imaging protocol: Radiologic exam of the chest. Views: 2 views. COMPARISON: CT ABDOMEN PELVIS WO CON 12/19/2021 6:43 AM FINDINGS: Lungs: Central opacities with peribronchial cuffing, seen to advantage on the lateral chest radiograph. Pleural spaces: Unremarkable. No pleural effusion. No pneumothorax. Heart/Mediastinum: Unremarkable. No cardiomegaly. Bones/joints: Unremarkable. IMPRESSION: Combination of findings that suggests viral process versus reactive airways without evidence of consolidation.
== END 2024-07-27 23:59 | disposition home or self-care (01) ==
LOC: RAD 18:53
PROVIDERS: PCP Nurse Practitioner Family; Visit Provider Nurse Practitioner
DX: R09.89 Other specified symptoms and signs involving the circulatory and respiratory systems (principal); R05.9 Cough, unspecified
CPT/HCPCS: 71046